=== PATIENT | female | born 2000 | race Caucasian/White ===

== ENCOUNTER 2022-07-22 09:39 | Outpatient (CLI) | payer OTHER, SELFPAY ==
--- NOTE | ~2022-07-22 | US_ITS ---
EXAMINATION: US OB /maternal detail DATE: 07/22/2022 10:35 INDICATION: anatomy screening during early second trimester of . TECHNIQUE: Multiple obstetric sonographic images performed. FINDINGS: There is a single living fetus in vertex presentation. The placenta is anterior with caudal margin 5 .0 cm from the internal cervical os. Cervical length of 5.0 cm. Amniotic fluid volume is subjectively normal. heart rate of 150 beats per minute. The following anatomy was identified as normal: Ventricles, choroid plexus, falx and cava septum pellucidum Cerebellum and cisterna magna Nuchal fold Upper lip Spine Diaphragm Stomach Kidneys Bladder 3 vessel cord and cord insertion Bilateral upper and lower extremities including the feet. The bilateral hands are poorly visualized. The four-chamber heart view is nondiagnostic and dedicated left ventricular outflow tract views were not obtained. The following biometric data were obtained: BPD: 5.2 cm -> 21 weeks 5 days Head circumference: 19.7 cm -> 21 weeks 6 days Abdominal circumference: 16.6 cm -> 21 weeks 4 days Femur length: 3.7 cm -> 21 weeks 4 days These measurements are concordant. Head circumference to abdominal circumference ratio: 1.19 (normal range 1.06-1.24). Estimated weight: 440 g (+/-) 66 g. or 1 lbs. 0 oz. (+/-) 2 oz. IMPRESSION: 1. Single living fetus with vertex presentation with heart rate of 150 bpm. 2. Gestational age by ultrasound of 21 weeks 5 day(s) (+/-) 1 week 4 day(s) with ultrasound estimat ed date of delivery (NETTA) of 11/27/2022. Estimated weight is 85th percentile by Hadlock criteria when 12/03/2022 is used as the NETTA. Please correlate with clinical information or earlier ultrasounds for most accurate NETTA. 3. Poor visualization of the hands and nondiagnostic views of the heart. Otherwise normal anato starr survey. Reviewed, dictated and finalized at location A. IMPRESSION: 1. Single living fetus with vertex presentation with heart rate of 150 b pm. 2. Gestational age by ultrasound of 21 weeks 5 day(s) (+/-) 1 week 4 day(s) w ith ultrasound estimated date of delivery (NETTA) of 11/27/2022. Estimated w eight is 85th percentile by Hadlock criteria when 12/03/2022 is used as the NETTA. Please correlate with clinical information or earlier ultrasounds for most acc urate NETTA. 3. Poor visualization of the hands and nondiagnostic views of the heart. Otherw ise normal anatomic survey.
== END 2022-07-22 09:40 | disposition home or self-care (01) ==
LOC: ANHIMG 09:42
PROVIDERS: PCP Family Medicine; Visit Provider Obstetrics & Gynecology Gynecology
DX: Z36.9 Encounter for antenatal screening, unspecified (principal); Z3A.21 21 weeks gestation of pregnancy
CPT/HCPCS: 76805

== ENCOUNTER 2022-09-03 10:33 | Outpatient (CLI) | payer OTHER, SELFPAY ==
--- NOTE | ~2022-09-03 | US_ITS ---
EXAMINATION: US OB follow up DATE: 09/03/2022 11:01 INDICATION: Follow-up survey TECHNIQUE: Real-time transabdominal obstetric ultrasound. FINDINGS: Ultrasound dated 07/22/2022 There is a single living fetus in vertex presentation. The placenta is anterior without placenta pre via. cardiac activity and movement is noted with a heart rate of 143 beats per minute. T he amniotic fluid volume is normal. CRYSTAL measures 11.2 cm. The following biometric data were obtained: BPD: 72mm corresponds to gestational age 28 weeks 5 days. Head circumference: 270mm corresponds to gestational age 29 weeks 4 days. Abdominal circumference: 219mm corresponds to gestational age 26 weeks 3 days. Femur length: 54mm corresponds to gestational age 28 weeks 3 days. Estimated weight: 1090grams +/- 163grams, 60.1%.] IMPRESSION: 1. Single living intrauterine in vertex presentation with an estimated gestational age of 27 weeks 6 days by inititial ultrasound. EDC by initial ultrasound is 11/27/2022. Appropriate interval growth. 2. Normal placenta. Reviewed, dictated and finalized at location L. IMPRESSION: 1. Single living intrauterine in vertex presentation with an estimat ed gestational age of 27 weeks 6 days by inititial ultrasound. EDC by initial u ltrasound is 11/27/2022. Appropriate interval growth. 2. Normal placenta.
== END 2022-09-03 10:34 | disposition home or self-care (01) ==
PROVIDERS: PCP Family Medicine; Visit Provider Obstetrics & Gynecology Gynecology
DX: Z36.9 Encounter for antenatal screening, unspecified (principal); Z3A.00 Weeks of gestation of pregnancy not specified
CPT/HCPCS: 76816